=== PATIENT | female | born 1945 | race Caucasian/White ===

== ENCOUNTER → 2016-09-05 19:19 | Outpatient (CLI) | payer MEDICARE, MEDICAID ==
[2016-02-02 08:19] VITALS: BMI 25.0
[~2016-09-05 19:19] MED LIST: LISINOPRIL10 MG PO; PAZEO2.5 ML EACH EYE; PRAVASTATIN SOD10 MG PO; PROZAC20 MG PO
[2016-09-05 20:53] LABS: APPEARANCE CLEAR (CLEAR); BACTERIA MODERATE /hpf (NONE SEEN); BILIRUBIN NEGATIVE (NEGATIVE); COLOR YELLOW (YELLOW); EPITHELIAL CELLS 0-5 /hpf (0-5); GLUCOSE NEGATIVE (NEGATIVE); KETONE NEGATIVE (NEGATIVE); LEUKOCYTE ESTERASE TRACE (NEGATIVE); NITRITE NEGATIVE (NEGATIVE); PROTEIN NEGATIVE (NEGATIVE); RED CELLS - URINE OCC /hpf (0-5); UROBILINOGEN NORMAL (NORMAL); WHITE CELLS - URINE 0-5 /hpf (0-5)
== END | disposition home or self-care (01) ==
LOC: D.LABREF 19:19
PROVIDERS: Urology
DX: N39.0 Urinary tract infection, site not specified (principal)